=== PATIENT | male | born 1965 | race Caucasian/White ===

== ENCOUNTER 2017-03-11 16:27 | Emergency (ER) | payer MEDICARE, MEDICAID ==
[~2017-03-11] VITALS: Ht 185.4 cm; Wt 125.0 kg
[~2017-03-11 16:27] MED LIST: AMOX500T2 PO; GABA300C5 PO; GLIP10TA6 PO; METF1000 PO; SIMV20TA PO
[2017-03-11 16:29] VITALS: BP 137/81; PULSE 104; RESP 16; TEMP 100.1; O2SAT 97
--- NOTE | 2017-03-11 16:47 | PD ---
HPI Chief Complaint: Respiratory Symptoms Time Seen by Provider: 16:38 Travel History International Travel<30 days: No Contact w/Intl Traveler<30days: No Traveled to known affect area: No History of Present Illness HPI 51 YO M with PMH of T2DM, current smoker presents to the ED for evaluation of 3 day history of chills, sinus congestion, runny nose, intermittent cough productive of white phlegm. He also complains of 3 day history of 6/10 pain radiating up the right leg. Described as constant. No alleviating or exacerbating factors noted. He states that he stepped on a [place] nail 4 days ago. He states that he has neuropathy and did not feel it but heard the metal clicking on the ground and pulled the nail out. He denies chest pain, nausea, vomiting, abdominal pain, dysuria, back pain. He states that his sugars are "always high." He does not use insulin. Also states that he was recently diagnosed with shingles and has been taking acyclovir. He is unsure of the date of his last tetanus immunization. PFSH Social History Tobacco Use: Yes (1ppd +) Allergies-Medications (Allergen,Severity, Reaction): Coded Allergies: bee venom protein (honey bee) (Verified Allergy, Intermediate, Swelling, 03/11/17) Reported Meds & Prescriptions Reported Meds & Active Scripts Active Clindamycin (Clindamycin HCl) 150 Mg Cap 450 Mg PO Q6HR 7 Days Reported Gabapentin 300 Mg Cap 300 Mg PO BID Simvastatin 20 Mg Tab 20 Mg PO DAILY Glipizide 10 Mg Tab 10 Mg PO BIDAC Take 30 minutes before a meal Metformin (Metformin HCl) 1,000 Mg Tab 1,000 Mg PO BIDPC Review of Systems Except as stated in HPI: all other systems reviewed are Neg Physical Exam Narrative GENERAL: Well-nourished, well-developed white male in NAD. SKIN: Focused skin assessment warm/dry. Scattered, erythematous, pustular rash of the left anterior chest. HEAD: Normocephalic. EYES: No scleral icterus. No injection or drainage. ENT: Pearly alaniz tympanic membranes bilaterally. Oropharynx without erythema, edema, exudate. Airway patent. NECK: Supple, trachea midline. No JVD or lymphadenopathy. CARDIOVASCULAR: Regular rate and rhythm without murmurs, gallops, or rubs. RESPIRATORY: Breath sounds clear and equal bilaterally. No accessory muscle use. GASTROINTESTINAL: Abdomen soft, non-tender, nondistended. Active bowel sounds. MUSCULOSKELETAL: No cyanosis, or edema. FOCUSED RIGHT LOWER EXTREMITY EXAM: 2+ DP pulse. Erythema, edema, warm on the distal third of the plantar aspect of the foot. Warm erythema on the dorsal aspect of the foot. + Hohmann sigh. + popliteal TTP. Compartments of the lower leg are soft. Diminished sensation of the lower extremities secondary to diabetic neuropathy. BACK: Nontender without obvious deformity. No CVA tenderness. Data Data Last Documented VS Vital Signs Date Time Temp Pulse Resp B/P (MAP) Pulse Ox O2 Delivery O2 Flow Rate FiO2 03/11/17 16:29 100.1 104 16 137/81 (99) 97 Orders Orders Sepsis Workup Initiated (03/11/17 ) Complete Blood Count With Diff (03/11/17 16:59) Comprehensive Metabolic Panel (03/11/17 16:59) Lactic Acid Sepsis Protocol (03/11/17 16:59) Urinalysis - C+S If Indicated (03/11/17 16:59) Blood Culture (03/11/17 16:59) Chest, Single Ap (03/11/17 16:59) Blood Glucose (03/11/17 16:59) Ecg Monitoring (03/11/17 16:59) Iv Access Insert/Monitor (03/11/17 16:59) Oximetry (03/11/17 16:59) Acetaminophen (Tylenol) (03/11/17 17:00) Sodium Chlor 0.9% 1000 Ml Inj (Ns 1000 M (03/11/17 17:00) Foot, Complete ([id number]) (03/11/17 16:59) Tetanus/Diphtheria Tox Adult (Tetanus/Di (03/11/17 17:15) Influenzae A/B Antigen (03/11/17 17:04) Us Leg Venous Doppler (03/11/17 17:14) Vancomycin Inj (Vancomycin Inj) (03/11/17 18:31) Lactic Acid (03/11/17 19:18) Acetamin-Hydrocod 325-5 Mg ([place] 5-325 (03/11/17 20:00) Urine Culture (03/11/17 19:10) Ed Discharge Order (03/11/17 20:44) Labs Laboratory Tests Test 03/11/17 17:40 03/11/17 17:47 03/11/17 19:10 03/11/17 20:00 White Blood Count 10.4 TH/MM3 Red Blood Count 4.51 MIL/MM3 Hemoglobin 13.8 GM/DL Hematocrit 39.8 % Mean Corpuscular Volume 88.4 FL Mean Corpuscular Hemoglobin 30.7 PG Mean Corpuscular Hemoglobin Concent 34.8 % Red Cell Distribution Width 13.2 % Platelet Count 181 TH/MM3 Mean Platelet Volume 8.5 FL Neutrophils (%) (Auto) 69.3 % Lymphocytes (%) (Auto) 21.3 % Monocytes (%) (Auto) 6.4 % Eosinophils (%) (Auto) 2.7 % Basophils (%) (Auto) 0.3 % Neutrophils # (Auto) 7.2 TH/MM3 Lymphocytes # (Auto) 2.2 TH/MM3 Monocytes # (Auto) 0.7 TH/MM3 Eosinophils # (Auto) 0.3 TH/MM3 Basophils # (Auto) 0.0 TH/MM3 CBC Comment DIFF FINAL Differential Comment Blood Urea Nitrogen 15 MG/DL Creatinine 0.78 MG/DL Random Glucose 237 MG/DL Total Protein 7.8 GM/DL Albumin 3.4 GM/DL Calcium Level 8.9 MG/DL Alkaline Phosphatase 85 U/L Aspartate Amino Transf (AST/SGOT) 22 U/L Alanine Aminotransferase (ALT/SGPT) 48 U/L Total Bilirubin 0.5 MG/DL Sodium Level 134 MEQ/L Potassium Level 4.4 MEQ/L Chloride Level 98 MEQ/L Carbon Dioxide Level 30.3 MEQ/L Anion Gap 6 MEQ/L Estimat Glomerular Filtration Rate 105 ML/MIN Lactic Acid Level 2.2 mmol/L 1.0 mmol/L Urine Color YELLOW Urine Turbidity CLEAR Urine pH 6.5 Urine Specific [place] 1.025 Urine Protein 30 mg/dL Urine Glucose (UA) 1000 mg/dL Urine Ketones NEG mg/dL Urine Occult Blood NEG Urine Nitrite NEG Urine Bilirubin NEG Urine Urobilinogen 2.0 MG/DL Urine Leukocyte Esterase NEG Urine RBC 6 /hpf Urine WBC 1 /hpf Urine Squamous Epithelial Cells 1 /hpf Urine Bacteria RARE /hpf Urine Mucus FEW /lpf Microscopic Urinalysis Comment CATH-CULTURE IND MDM Medical Decision Making Medical Screen Exam Complete: Yes Emergency Medical Condition: Yes Differential Diagnosis Cellulitis versus osteomyelitis versus sepsis versus viral illness versus bronchitis versus PNA versus other Narrative Course 51 YO M with PMH of T2DM, current smoker presents to the ED for evaluation of 3 day history of chills, sinus congestion, runny nose, intermittent cough productive of white phlegm. He also complains of 3 day history of 6/10 pain radiating up the right leg after he stepped on a [place] nail 4 days ago. He states that he has neuropathy and did not feel it but heard the metal clicking on the ground and pulled the nail out. Recently diagnosed with shingles, taking acyclovir. ?tetanus booster. Vitals reviewed. Physical exam reveals a nontoxic-appearing white male in no acute distress. There is a rash of the left anterior chest is consistent with herpes zoster. ENT exam is unremarkable. FOCUSED RIGHT LOWER EXTREMITY EXAM: 2+ DP pulse. Erythema, edema, warm on the distal third of the plantar aspect of the foot. Warm erythema on the dorsal aspect of the foot. + Hohmann sigh. + popliteal TTP. Compartments of the lower leg are soft. Diminished sensation of the lower extremities secondary to diabetic neuropathy. IV was established. Blood cultures were obtained. Sepsis workup was initiated. Patient's tetanus immunization was updated. He was administered Tylenol by mouth. CBC: No leukocytosis. CMP: The G2 34, otherwise unremarkable. Lactic acid 2.2, 1.0 on recheck. Flu swab: Negative. UA: rare bacteria, culture pending. Patient is not complaining of urinary symptoms, will defer abx pending culture. Foot x-ray: No foreign body or fracture per radiology read. US right lower extremity: No evidence of DVT per radiology read. Chest x-ray: No acute disease per radiology read. Patient was administered 1 g IV vancomycin. He has podiatric care with Dr. Olson. He is prescribed clindamycin 450 mg 4 times a day. Patient instructed to take the antibiotics as prescribed, monitor for worsening of symptoms, return to the ED as needed, otherwise follow up with Dr. Olson. He indicated understanding of the instructions. He is stable and discharged home. Diagnosis Primary Impression: Cellulitis of right foot Additional Impressions: Need for tetanus booster Puncture wound Referrals: Richy Olson DPM Patient Instructions: Cellulitis (ED), General Instructions, Puncture Wound (ED ) Additional Instructions: Rest, hydrate. Take antibiotics until every pill is gone. Keep the foot elevated as possible Return to the ED should symptoms worsen, including pain, redness, fever. Follow-up with Dr. Olson on Monday as discussed. Return to the ED for any urgent or emergent medical condition. Med/Other Pt SpecificInfo: Prescription(s) given Scripts Clindamycin (Clindamycin) 150 Mg Cap 450 MG PO Q6HR for Infection for 7 Days, CAP 0 Refills Prov: David Mensah MD 03/11/17 Disposition: 01 DISCHARGE HOME Condition: Stable Nadya Mccarty Mar 11, 2017 16:47
[2017-03-11] MEDS ORDERED: ACETAMINOPHEN 325 MG TAB PO ONE (17:00)
[2017-03-11] MEDS ORDERED: SODIUM CHLOR 0.9% 1000 ML INJ 1,000 ML IV ONE (17:00)
[2017-03-11] MEDS ORDERED: TETANUS/DIPHTHERIA TOXOID ADULT 0.5 ML VIAL IM ONE (17:15)
--- NOTE | 2017-03-11 17:29 | RADRPT ---
EXAM DATE/TIME: 03/11/2017 17:08 [facility] COMPARISON: No previous studies available for comparison. INDICATIONS : Cough for 3 days. MEDICAL HISTORY : Diabetes mellitus type II. SURGICAL HISTORY : None. ENCOUNTER: Initial ACUITY: 2 days PAIN SCORE: 4/10 LOCATION: Bilateral chest FINDINGS: A single view of the chest demonstrates the lungs to be symmetrically aerated without evidence of mas s, infiltrate or effusion. The cardiomediastinal contours are unremarkable. Osseous structures are intact. CONCLUSION: No acute disease. Cody Mendoza MD on March 11, 2017 at 17:27 Board Certified Radiologist. This report was verified electronically.
--- NOTE | 2017-03-11 17:31 | RADRPT ---
EXAM DATE/TIME: 03/11/2017 17:11 [facility] COMPARISON: No previous studies available for comparison. INDICATIONS : Stepped on nail 2 days ago. MEDICAL HISTORY : Diabetes mellitus type II. SURGICAL HISTORY : None. ENCOUNTER: Initial ACUITY: 2 days PAIN SCORE: 0/10 LOCATION: Right 3rd digit head of metatarsals FINDINGS: Three view examination of the right foot demonstrates no soft tissue swelling, dislocation, or fractu re. The tarsal bones appear intact. The interphalangeal and metatarsophalangeal joints are intact. The calcaneus is intact. Bony mineralization is normal. CONCLUSION: 1. No acute bony abnormality. No radiopaque foreign bodies. Jimmy Stack MD on March 11, 2017 at 17:28 Board Certified Radiologist. This report was verified electronically.
[2017-03-11 18:22] LABS: AUTOMATED NEUTROPHIL # 7.2 TH/MM3 (1.8-7.7); BASOPHIL % 0.3 % (0.0-2.0); EOSINOPHIL # 0.3 TH/MM3 (0-0.4); EOSINOPHIL % 2.7 % (0.0-4.0); HEMATOCRIT 39.8 % (39.0-51.0); HEMO FLAGS DIFF FINAL; LYMPH % 21.3 % (9.0-44.0); LYMPHOCYTE # 2.2 TH/MM3 (1.0-4.8); MEAN CELL VOLUME 88.4 FL (80.0-100.0); MEAN CORPUSCULAR HEMOGLOBIN 30.7 PG (27.0-34.0); MEAN CORPUSCULAR HGB CONC 34.8 % (32.0-36.0); MONO % 6.4 % (0.0-8.0); NEUT % 69.3 % (16.0-70.0); PLATELET COUNT 181 TH/MM3 (150-450); RED BLOOD COUNT 4.51 MIL/MM3 (4.50-5.90); RED CELL DISTRIBUTION WIDTH 13.2 % (11.6-17.2); WHITE BLOOD COUNT 10.4 TH/MM3 (4.0-11.0)
--- NOTE | 2017-03-11 18:24 | RADRPT ---
EXAM DATE/TIME: 03/11/2017 17:44 [facility] COMPARISON: No previous studies available for comparison. INDICATIONS : Right leg pain. MEDICAL HISTORY : Hypercholesterolemia. Neuropathy. Hyperlipidemia. Sleep apnea. Diabetes. SURGICAL HISTORY : Tonsillectomy. Appendectomy. Cholecystectomy. Left fifth toe amputation. ENCOUNTER: Initial ACUITY: 4 - 6 days PAIN SCORE: 3/10 LOCATION: Right leg. TECHNIQUE: Venous ultrasound of the leg was performed from the inguinal ligament to the proximal calf. Real-lori e, color Doppler and spectral tracing, compression and augmentation techniques were used. FINDINGS: There is normal compressibility of the deep venous system from the inguinal region to the proximal ca lf. No echogenic clot is seen in the lumen of the common femoral, femoral, popliteal, and posterior tibial veins. There is a normal response of the venous system to proximal and distal augmentation an d respiration. CONCLUSION: Normal examination. Jimmy Stack MD on March 11, 2017 at 18:22 Board Certified Radiologist. This report was verified electronically.
[2017-03-11] MEDS ORDERED: PIPERACIL-TAZO 4.5 GM PREMIX 100 ML IV STA (18:31)
[2017-03-11] MEDS ORDERED: VANCOMYCIN INJ 1,000 MG in SODIUM CHLOR 0.9% 250 ML INJ 250 ML IV STA (18:31)
[2017-03-11 18:50] LABS: ALT (GPT) 48 U/L (12-78); ANION GAP 6 MEQ/L (5-15); AST (GOT) 22 U/L (15-37); BICARBONATE 30.3 MEQ/L (21.0-32.0); BLOOD UREA NITROGEN 15 MG/DL (7-18); CHLORIDE 98 MEQ/L (98-107); GLOMERULAR FILTRATION RATE 105 ML/MIN (>89); POTASSIUM 4.4 MEQ/L (3.5-5.1); SODIUM (NA) 134 MEQ/L (136-145)
[2017-03-11 18:52] LABS: ALKALINE PHOSPHATASE 85 U/L (45-117); TOTAL BILIRUBIN ADULT 0.5 MG/DL (0.2-1.0)
[2017-03-11] MEDS ORDERED: ACETAMINOPHEN/HYDROcodone 325 MG/5 MG TAB PO ONE (20:00)
[2017-03-11 20:09] LABS: LACTIC ACID GHOST NOT REPORTABLE
[2017-03-11 20:27] LABS: BACTERIA, URINE RARE /hpf; BLOOD, URINE NEG (NEG); GLUCOSE,URINE 1000 mg/dL (NEG); KETONE, URINE NEG (NEG); MUCUS URINE FEW /lpf (OCC); NITRITE,URINE NEG (NEG); PH, URINE 6.5 (5.0-8.5); SQUAMOUS EPITHELIAL CELL URINE 1 /hpf (0-5); URINE COLOR YELLOW (YELLW/STRAW)
[2017-03-11 20:29] LABS: COMMENT (UR) CATH-CULTURE IND; CULTURE IF INDICATED CATH CULTURE IND
[2017-03-11] MEDS ORDERED: CLIN150C14 PO (20:39)
[2017-03-11 21:15] VITALS: BP 114/63; PULSE 86; RESP 16; O2SAT 99
== END 2017-03-11 21:38 | disposition home or self-care (01) ==
LOC: NEPC 16:27
DX: L03.115 Cellulitis of right lower limb (principal); S91.331A Puncture wound without foreign body, right foot, initial encounter; F17.210 Nicotine dependence, cigarettes, uncomplicated; B02.9 Zoster without complications; E11.40 Type 2 diabetes mellitus with diabetic neuropathy, unspecified; Z79.84 Long term (current) use of oral hypoglycemic drugs; W45.0XXA Nail entering through skin, initial encounter; Z23 Encounter for immunization
CPT/HCPCS: 71010; 73630; 80053; 81001; 83605; 85025; 87040; 87086; 87804; 90471; 90714; 93971; 96361; 96365; 99285; J3370; J7030; J7050